=== PATIENT | female | born 1985 | race Caucasian/White ===

== ENCOUNTER 2016-10-13 13:33 | Inpatient (IN) | payer MEDICAID, OTHER ==
[2016-10-13] VITALS (72 sets, daily range): BP systolic 94–142; BP diastolic 37–90; PULSE 61–105; RESP 18–20; TEMP 97.4–98.3
[~2016-10-13] VITALS: Ht 177.8 cm; Wt 89.8 kg
[2016-10-13] MEDS ORDERED: LACTATED RINGER'S 1000 ML INJ 1,000 ML IV PRN (14:10)
--- NOTE | 2016-10-13 14:10 | HHI.HP ---
HPI Chief Complaint Water broke Date Seen: Oct 13, 2016 Travel History International Travel<30 Days: No Contact w/Intl Traveler<30Days: No History of Present Illness HPI Patient is a 31-year-old white female 40 weeks gestation followed through the [facility] presents complaining of ruptured membranes today, and there is a gross ruptured membranes noted in triage with clear fluid. She denies bleeding or painful contractions though she is randi some. heart rate tracing reactive Dr. Choudhary is covering for the group Will notify of patient's admission Para: 0 : 1 History Past Medical History Medical History: Denies Significant Hx Allergies-Medications (Allergen,Severity, Reaction): Coded Allergies: No Known Allergies (Verified , 04/07/13) Review of Systems General / Constitutional: No: Fever, Weight Gain, Chills, Other Physical Exam Narrative GENERAL: Well-nourished, well-developed patient. SKIN: Warm and dry. HEAD: Normocephalic and atraumatic. EYES: No scleral icterus. No injection or drainage. ENT: No nasal drainage noted. Mucous membranes pink. Airway patent. NECK: Supple, trachea midline. No JVD. CARDIOVASCULAR: Regular rate and rhythm without murmurs, gallops, or rubs. RESPIRATORY: Breath sounds equal bilaterally. No accessory muscle use. BREASTS: Bilateral exam showed no masses , no retractions, no nipple discharge. ABDOMEN/GI: Abdomen soft, non-tender, bowel sounds present, no rebound, no guarding Gravid to [term-] weeks size Fundal Height: [37 cm-] GENITOURINARY: External Genitalia: intact and normal in appearance BUS glands: [-] Cervix: [-post] Dilatation: [2-3-] Effacement: [-60] Station: [-2] Presentation: [vtx-] Membranes: [ ruptured] amnisure + Uterine Contractions: [-irreg] FHT's: Category: [-1] Baseline: [-144] Reactive: [yes-] Variability: [mod-] Decels: [none-] EXTREMITIES: No cyanosis or edema. BACK: Nontender without obvious deformity. No CVA tenderness. NEUROLOGICAL: Awake and alert. Motor and sensory grossly within normal limits. Five out of 5 muscle strength in all muscle groups. Normal speech. Data Data Labs amnisure + Assessment/Plan Assessment and Plan 31-year-old white female at 40 weeks with spontaneous ruptured membranes at term, no bleeding or complication noted. There fluid noted in copious amount and OB ED heart rate tracing is reactive contractions irregular, cervix is 2-60 and -3 / vtx Plan to admit the patient augment as needed to effect vaginal delivery Vimal Gee II, MD Oct 13, 2016 14:10
[2016-10-13] MEDS ORDERED: LIDOCAINE HCL 1% 50 ML VIAL INFIL PRN (14:15)
[2016-10-13] MEDS ORDERED: OXYTOCIN 30 UNITS-500ML PREMIX 500 ML IV ONE (14:15)
[2016-10-13] MEDS ORDERED: CITRIC ACID-SODIUM CITRATE LIQ 30 ML UDC PO SCH (14:15)
[2016-10-13] MEDS ORDERED: MINERAL OIL 10 ML VIAL TOPICAL PRN (14:15)
[2016-10-13] MEDS ORDERED: SODIUM CHLORID 0.9% 500 ML INJ 500 ML IV PRN (14:15)
[2016-10-13] MEDS ORDERED: LIDOCAINE HCL 1% 50 ML VIAL I-DERMAL PRN (14:15)
[2016-10-13] MEDS ORDERED: CALNTAB (14:20)
[2016-10-13 14:23] LABS: AUTOMATED NEUTROPHIL # 7.6 TH/MM3 (1.8-7.7); BASOPHIL % 0.3 % (0.0-2.0); EOSINOPHIL # 0.1 TH/MM3 (0-0.4); HEMATOCRIT 35.7 % (35.0-46.0); HEMO FLAGS DIFF FINAL; LYMPH % 15.9 % (9.0-44.0); LYMPHOCYTE # 1.6 TH/MM3 (1.0-4.8); MEAN CELL VOLUME 89.3 FL (80.0-100.0); MEAN CORPUSCULAR HGB CONC 35.8 % (32.0-36.0); MONO % 9.6 % (0.0-8.0); NEUT % 73.2 % (16.0-70.0); PLATELET COUNT 170 TH/MM3 (150-450); RED CELL DISTRIBUTION WIDTH 13.2 % (11.6-17.2); WHITE BLOOD COUNT 10.4 TH/MM3 (4.0-11.0)
[2016-10-13] MEDS ORDERED: SODIUM CHLOR 0.9% 1000 ML INJ 1,000 ML IV PRN (14:30)
[2016-10-13 14:37] LABS: BACTERIA, URINE RARE /hpf; BLOOD, URINE NEG (NEG); COMMENT (UR) CULT NOT INDICATED; CULTURE IF INDICATED CULT NOT INDICATED; GLUCOSE,URINE NEG (NEG); KETONE, URINE NEG (NEG); MUCUS URINE FEW /lpf (OCC); NITRITE,URINE NEG (NEG); RENAL EPITHELIAL CELLS <1 /hpf; SQUAMOUS EPITHELIAL CELL URINE 3 /hpf (0-5); URINE COLOR YELLOW (YELLW/STRAW)
[2016-10-13] MEDS ORDERED: OXYTOCIN 30 UNITS/NS 500ML PREMIX IV SCH (16:00)
[2016-10-13] MEDS: LACTATED RINGER'S 1000 ML INJ 1,000 ML IV SCH ×2 (16:01→21:04)
[2016-10-13] MEDS ORDERED: ePHEDrine/NS 50 MG/5 ML SYR IV PRN (20:30)
[2016-10-13] MEDS ORDERED: DO NOT ADMINISTER ANTICOAGULANTS XX PRN (20:30)
[2016-10-13] MEDS ORDERED: fentaNYL 2MCG-BUPIV 0.125% INJ 100 ML EPIDURAL SCH (20:30)
[2016-10-13] MEDS ORDERED: NO SYSTEM NARCOTICS XX PRN (20:30)
[2016-10-13] MEDS ORDERED: fentaNYL 2MCG-BUPIV 0.125% INJ 100 ML ONE (20:32)
[2016-10-14] VITALS (79 sets, daily range): BP systolic 92–191; BP diastolic 48–135; PULSE 67–165; RESP 16–20; TEMP 98.1–99.6; O2SAT 98
--- NOTE | 2016-10-14 09:25 | PD.OB.DELI ---
Anesthesia: Epidural Vaginal Delivery: Normal Presentation: Occiput anterior Nuchal Cord: None Shoulder Dystocia: Suprapubic pressure given, Dora maneuver done : Female One Minute : 8 Five Minute : 9 Weight: 7# 7oz Care: Suctioned, Spontaneous crying, Responded to stimulation Placenta: Spontaneous delivery, Intact, 3 vessel cord Laceration: Vaginal laceration, 2 deg Repair: Fabianoryl Issa Ochoa MD Oct 14, 2016 09:25
[2016-10-14] MEDS ORDERED: oxyCODONE/ACETAMINOPHEN 5 MG/325 MG TAB PO PRN (09:30)
[2016-10-14] MEDS ORDERED: OXYTOCIN 10 UNIT/ML AMP XX ONE (09:30)
[2016-10-14] MEDS ORDERED: WITCH HAZEL 50%/GLYCERIN 12.5% 40 PAD JAR TOPICAL PRN (09:30)
[2016-10-14] MEDS ORDERED: ACETAMINOPHEN 325 MG TAB PO PRN (09:30)
[2016-10-14] MEDS ORDERED: ALUMINUM/MAGNESIUM/SIMETH 30 ML CUP PO PRN (09:30)
[2016-10-14] MEDS ORDERED: SODIUM CHLORIDE 0.9% FLUSH 5 ML FLUSH IV PRN (09:30)
[2016-10-14] MEDS ORDERED: BENZOCAINE 20% TOPICAL SPRAY 60 ML CAN TOPICAL PRN (09:30)
[2016-10-14] MEDS ORDERED: DOCUSATE SODIUM 50 MG/SENNA 8.6 MG TAB PO PRN (09:30)
[2016-10-14] MEDS ORDERED: ONDANSETRON ODT 4 MG TAB PO PRN (09:30)
[2016-10-14] MEDS ORDERED: SODIUM CHLORIDE 0.9% FLUSH 5 ML FLUSH IV SCH (09:30)
[2016-10-14] MEDS ORDERED: METHYLERGONOVINE MALEATE 0.2 MG TAB PO ONE (10:15)
[2016-10-14] MEDS ORDERED: MEASLES, MUMPS, RUBELLA VACCINE 0.5 ML VIAL SQ ONE (16:00)
[2016-10-14] MEDS ORDERED: DIPHTH/TETANUS/ACEL PERTUSSIS (BOOSTER) 0.5 ML VIAL/PFS IM ONE (16:00)
[2016-10-14] MEDS: IBUPROFEN 600 MG TAB PO PRN (20:05)
[2016-10-14] MEDS ORDERED: ZOLPIDEM TARTRATE 5 MG TAB PO PRN (21:00)
--- NOTE | 2016-10-15 07:59 | HHI.OB ---
Subjective Post Day: 1 Remarks doing well, no complaints, pumping Objective Vitals/I&O Vital Signs Date Time Temp Pulse Resp B/P Pulse Ox O2 Delivery O2 Flow Rate FiO2 10/14/16 20:00 98.8 90 18 10/14/16 20:00 107/66 10/14/16 13:43 98.5 71 18 10/14/16 13:43 110/56 10/14/16 11:15 86 123/68 10/14/16 10:15 20 10/14/16 10:00 18 10/14/16 10:00 87 135/67 10/14/16 09:45 95 118/65 10/14/16 09:30 97 18 119/81 10/14/16 09:16 91 107/52 10/14/16 09:15 16 10/14/16 09:10 97 127/61 10/14/16 09:10 98.9 10/14/16 09:00 114 138/91 10/14/16 08:45 92 123/67 10/14/16 08:31 93 138/66 10/14/16 08:06 98.9 98 10/14/16 08:01 88 131/65 Objective Remarks GENERAL: Well-nourished, well-developed patient. CARDIOVASCULAR: Regular rate and rhythm without murmurs, gallops, or rubs. RESPIRATORY: Breath sounds equal bilaterally. No accessory muscle use. ABDOMEN/GI: Abdomen soft, non-tender. Fundus: Firm, non-tender at umbilicus. GENITOURINARY: Light to moderate bleeding. EXTREMITIES: No cyanosis or edema, non-tender, without signs of DVT. Medications and IVs Current Medications Medications (Trade) Dose Ordered Sig/Beverley Route Start Time Stop Time Status Last Admin Lactated Ringer's 1,000 ml @ 125 mls/hr Q8H IV 10/13/16 14:10 10/13/16 21:04 Lactated Ringer's 1,000 ml @ 3,000 mls/hr Q20M PRN IV 10/13/16 14:10 10/13/16 21:03 (NS 1000 ml Inj) 1,000 ml @ 100 mls/hr Q10H PRN IV 10/13/16 14:30 (fentaNYL INJ) 50 mcg Q1H PRN IV PUSH 10/13/16 14:15 10/13/16 18:37 (fentaNYL INJ) 100 mcg Q1H PRN IV PUSH 10/13/16 14:15 Mineral Oil 10 ml 10 ml UNSCH PRN TOPICAL 10/13/16 14:15 Oxytocin 500 ml @ 0 mls/hr TITRATE IV 10/13/16 16:00 10/13/16 16:02 (fentaNYL 2MCG-BUPIV 0.125% INJ) 100 ml @ 0 mls/hr TITRATE EPIDURAL 10/13/16 20:30 (NS Flush) 2 ml BID IV 10/14/16 09:30 (NS Flush) 2 ml UNSCH PRN IV 10/14/16 09:30 (Tylenol) 650 mg Q4H PRN PO 10/14/16 09:30 (Motrin) 600 mg Q6H PRN PO 10/14/16 09:30 10/14/16 20:05 (Percocet 5-325 Mg) 1 tab Q4H PRN PO 10/14/16 09:30 (Americaine 20% Top Spr) 1 spray Q4H PRN TOPICAL 10/14/16 09:30 10/14/16 20:04 (Tucks Pads) 1 applic QID PRN TOPICAL 10/14/16 09:30 10/14/16 20:04 (Ani-Colace) 2 tab Q12HR PRN PO 10/14/16 09:30 (Ambien) 5 mg HS PRN PO 10/14/16 21:00 (Mag-Al Plus Susp Liq) 15 ml Q8H PRN PO 10/14/16 09:30 (Zofran Odt) 4 mg Q6H PRN PO 10/14/16 09:30 Assessment/Plan Assessment and Plan 31-year-old white female at 40 weeks s/p PPD #1 Discharge Planning routine Attending Attestation pt seen by Arminda Quispe MD Oct 15, 2016 07:59
[2016-10-15] MEDS ORDERED: IBUP-232 PO (08:02)
--- NOTE | 2016-10-15 08:03 | HHI.DCPOC ---
Discharge Care Plan Your Health Problems Are: Pelvic pain Report Symptoms to Your Doctor -Temperate above 100.5 degrees -Redness, of incision or excessive or foul smelling drainage -Unusual pain or calf pain -Increased vaginal bleeding -Painful or difficulty urinating -Feelings of extreme sadness or anxiety after 2 weeks Goals to Promote Your Health * To prevent worsening of your condition and complications * To maintain your health at the optimal level Directions to Meet Your Goals Take your medications as prescribed Follow your dietary instruction Follow activity as directed Ensure plenty of rest for recovery Drink fluids for hydration Keep your appointments as scheduled Take your immunizations and boosters as scheduled If your symptoms worsen call your PCP, if no PCP go to Urgent Care Center or Emergency Room Smoking is Dangerous to Your Health. Avoid second hand smoke Call the 24-hour crisis hotline for domestic abuse at Arminda Marshall MD Oct 15, 2016 08:03
[2016-10-15] MEDS: IBUPROFEN 600 MG TAB PO PRN ×2 (09:01→15:29)
[2016-10-15] MEDS: LACTATED RINGER'S 1000 ML INJ 1,000 ML IV SCH (22:10)
[2016-10-16] MEDS ORDERED: SENN1TAB PO (08:01)
[2016-10-16] MEDS: IBUPROFEN 600 MG TAB PO PRN (08:04)
--- NOTE | 2016-10-16 08:16 | HHI.OB ---
Subjective Post Day: 2 Remarks PPD#2 Objective Objective Remarks GENERAL: Well-nourished, well-developed patient. CARDIOVASCULAR: Regular rate and rhythm without murmurs, gallops, or rubs. RESPIRATORY: Breath sounds equal bilaterally. No accessory muscle use. ABDOMEN/GI: Abdomen soft, non-tender. Fundus: Firm, non-tender at umbilicus. GENITOURINARY: Light to moderate bleeding. EXTREMITIES: No cyanosis or edema, non-tender, without signs of DVT. Medications and IVs Current Medications Medications (Trade) Dose Ordered Sig/Beverley Route Start Time Stop Time Status Last Admin Lactated Ringer's 1,000 ml @ 125 mls/hr Q8H IV 10/13/16 14:10 10/13/16 21:04 Lactated Ringer's 1,000 ml @ 3,000 mls/hr Q20M PRN IV 10/13/16 14:10 10/13/16 21:03 (NS 1000 ml Inj) 1,000 ml @ 100 mls/hr Q10H PRN IV 10/13/16 14:30 (fentaNYL INJ) 50 mcg Q1H PRN IV PUSH 10/13/16 14:15 10/13/16 18:37 (fentaNYL INJ) 100 mcg Q1H PRN IV PUSH 10/13/16 14:15 Mineral Oil 10 ml 10 ml UNSCH PRN TOPICAL 10/13/16 14:15 Oxytocin 500 ml @ 0 mls/hr TITRATE IV 10/13/16 16:00 10/13/16 16:02 (fentaNYL 2MCG-BUPIV 0.125% INJ) 100 ml @ 0 mls/hr TITRATE EPIDURAL 10/13/16 20:30 (NS Flush) 2 ml BID IV 10/14/16 09:30 (NS Flush) 2 ml UNSCH PRN IV 10/14/16 09:30 (Tylenol) 650 mg Q4H PRN PO 10/14/16 09:30 (Motrin) 600 mg Q6H PRN PO 10/14/16 09:30 10/16/16 08:04 (Percocet 5-325 Mg) 1 tab Q4H PRN PO 10/14/16 09:30 (Americaine 20% Top Spr) 1 spray Q4H PRN TOPICAL 10/14/16 09:30 10/14/16 20:04 (Tucks Pads) 1 applic QID PRN TOPICAL 10/14/16 09:30 10/14/16 20:04 (Ani-Colace) 2 tab Q12HR PRN PO 10/14/16 09:30 10/15/16 17:23 (Ambien) 5 mg HS PRN PO 10/14/16 21:00 (Mag-Al Plus Susp Liq) 15 ml Q8H PRN PO 10/14/16 09:30 (Zofran Odt) 4 mg Q6H PRN PO 10/14/16 09:30 Assessment/Plan Problem List: (1) Vaginal delivery Assessment and Plan 31-year-old white female s/p at 40 weeks PPD#2 meeting all criteria Discharge Planning routine Linda Fowler MD Oct 16, 2016 08:16
== END 2016-10-16 12:08 | disposition home or self-care (01) | DRG 775 ==
LOC: HOBED 13:33 → H2EB 14:07 → H1EA 10-14 12:15
PROVIDERS: ADMIT Obstetrics & Gynecology; ATTEND Obstetrics & Gynecology
PROC: 0KQM0ZZ Repair Perineum Muscle, Open Approach (ICD-10-PCS; principal; 2016-10-13)
PROC: 10E0XZZ Delivery of Products of Conception, External Approach (ICD-10-PCS; 2016-10-13)
PROC: 00HU33Z Insertion of Infusion Device into Spinal Canal, Percutaneous Approach (ICD-10-PCS; 2016-10-13)
PROC: 3E0R3CZ (ICD-10-PCS; 2016-10-13)
DX: O48.0 Post-term pregnancy (principal); O66.0 Obstructed labor due to shoulder dystocia; Z37.0 Single live birth; Z3A.40 40 weeks gestation of pregnancy; O70.1 Second degree perineal laceration during delivery
CPT/HCPCS: 81001; 84112; 85025; 86900; 86901; 99285; J2590; J3010; J7120